=== PATIENT | male | born 1990 | race Caucasian/White ===

== ENCOUNTER 2016-09-09 16:01 | Emergency (ER) | payer MEDICAID ==
[~2016-09-09] VITALS: Ht 172.7 cm; Wt 52.8 kg
[2016-09-09 16:43] LABS: BASOPHIL % 0.7 % (0-2); PLATELET COUNT 288 x10^3mcL (130-400); RED CELL DISTRIBUTION WIDTH 13.9 % (11.5-14.5)
[2016-09-09 16:54] LABS: CALCIUM 9.4 mg/dL (8.5-10.1); CARBON DIOXIDE 32.8 mmol/L (21-32); CHLORIDE SERUM 102 mmol/L (98-107); CREATININE SERUM 0.9 mg/dL (0.7-1.3); GFR1 > 60 mL/min; GLUCOSE SERUM 112 mg/dL (74-106); POTASSIUM SERUM 3.5 mmol/L (3.5-5.1); SODIUM SERUM 145 mmol/L (136-145)
[2016-09-09 17:06] LABS: ALBUMIN 4.3 g/dL (3.4-5.0); ALKALINE PHOSPHATASE 80 U/L (46-116); ALT/SGPT 19 U/L (16-63); AST/SGOT 14 U/L (15-37); BILIRUBIN TOTAL 0.6 mg/dL (0.20-1.00); T4(THYROXINE) 9.1 ug/dL (4.7-13.3); TOTAL PROTEIN, SERUM 7.8 g/dL (6.4-8.2)
[2016-09-09 17:24] LABS: AMPHETAMINE QUAL UR NONE DETECTED (NEG <=1000)
[2016-09-09 18:18] VITALS: BP 107/55
== END 2016-09-09 18:18 | disposition home or self-care (01) ==
LOC: ED 16:01
PROVIDERS: Emergency Medicine
DX: F11.23 Opioid dependence with withdrawal (principal); R11.2 Nausea with vomiting, unspecified; G47.00 Insomnia, unspecified; E86.0 Dehydration; F90.9 Attention-deficit hyperactivity disorder, unspecified type; F12.929 Cannabis use, unspecified with intoxication, unspecified
CPT/HCPCS: 80307; 83880; G0480; J2405; J3490; J7030